=== PATIENT | female | born 1965 | race Caucasian/White ===

== ENCOUNTER → 2024-10-26 | Outpatient (CLI) | payer MEDICAID, SELFPAY ==
[2024-10-26 12:37] LABS: Absolute Lymphocyte Count 2.46 X10^3/uL (0.83-4.51); Absolute Neutrophil Count 6.1 X10^3/uL (2.0-7.7); Basophil# 0.04 X10^3/uL; Basophil% 0.4 % (0-1); Eosinophil# 0.03 X10^3/uL; Eosinophils% 0.3 % (0-5); Hematocrit 45.4 % (37-47); Hemoglobin 15.2 g/dL (12.0-15.0); Lymphocyte # 2.46 X10^3/ul (0.83-4.51); Lymphocyte % 27.4 % (19-41); Mean Corp Hgb Conc 33.5 g/dL (32-36); Mean Corpuscular Hgb 31.6 pg (27.0-32.0); Mean Corpuscular Volume 94.4 fL (81-99); Mean Platelet Vol. 11.2 fl (6.2-12.0); Monocyte# 0.33 X10^3/uL; Monocyte% 3.7 % (0-10); NRBC Flagged by Analyzer 0 % (0-5); Neutrophil # 6.08 X10^3/uL (2.7-7.7); Neutrophil % 67.9 % (47-70); Platelet Count 258 K/mm3 (150-450); RBC Distribution Width CV 12.4 % (11.6-14.6); RBC Distribution Width SD 43.4 fl (35.1-43.9); Red Blood Count 4.81 M/mm3 (4.2-5.4)
[2024-10-26 14:27] LABS: ALB/GLOB Ratio 1.2 RATIO (0.9-2.4); AST(SGOT) 25 U/L (15-37); Alanine Aminotransfer ALT/SGPT 23 U/L (13-56); Albumin, Serum 4.6 g/dL (3.2-5.0); Alkaline Phosphatase 101 U/L (45-117); Anion Gap 9 (5-15); BUN 6 mg/dL (7-18); BUN/Creat Ratio 7.5 RATIO (10-20); Calcium,Total 10.1 mg/dL (8.5-10.1); Chloride 105 mmol/L (98-107); EST Glomerular Filtration Rate 77 mL/min (>60); Est Glom Filt Rate - Afr Amer 94 mL/min (>60); Globulin 3.9 g/dL (2.2-4.2); Glucose 83 mg/dL (74-106); Potassium 3.8 mmol/L (3.5-5.1); Protein, Total 8.5 g/dL (6.4-8.2); Sodium Level 136 mmol/L (136-145); T4 Free Direct 0.92 ng/dL (0.76-1.46)
[2024-11-01 09:22] LABS: ACCA 16 units (0-90); ALCA 2 units (0-60); AMCA 6 units (0-100); Anti-Centromere B Ab <0.2 AI (0.0-0.9); Anti-Chromatin <0.2 AI (0.0-0.9); Anti-Jo <0.2 AI (0.0-0.9); Anti-Scleroderma-70 AB <0.2 AI (0.0-0.9); Anti-dsDNA Ab <1 IU/mL (0-9); Beef <0.10 kU/L (Class 0); Chocolate <0.10 kU/L (Class 0); Codfish <0.10 kU/L (Class 0); Corn <0.10 kU/L (Class 0); Cytoplasmic Ab (C-ANCA) <1:20 titer (Neg:<1:20); Egg, Whole 0.31 kU/L (Class 0/I); Immunoglobulin A 146 mg/dL (87-352); Immunoglobulin E 33 IU/mL (6-495); Immunoglobulin G 929 mg/dL (586-1602); Immunoglobulin M 132 mg/dL (26-217); Milk (Cow) 0.58 kU/L (Class II); Mussels <0.10 kU/L (Class 0); Peanut <0.10 kU/L (Class 0); Perinuclear Ab (P-ANCA) <1:20 titer (Neg:<1:20); Pork <0.10 kU/L (Class 0); RNP Ab <0.2 AI (0.0-0.9); SJOGREN'S Anti-SS-A test < 0.2 AI (0.0-0.9); SJOGREN'S Anti-SS-B test < 0.2 AI (0.0-0.9); Salmon <0.10 kU/L (Class 0); Shrimp <0.10 kU/L (Class 0); Smith Ab <0.2 AI (0.0-0.9); Soybean <0.10 kU/L (Class 0); Tuna <0.10 kU/L (Class 0); Wheat <0.10 kU/L (Class 0); gASCA 17 units (0-50)
== END | disposition home or self-care (01) ==
LOC: LAB 11:30
PROVIDERS: Referring Provider Student in an Organized Health Care Education/Training Program; Visit Provider Student in an Organized Health Care Education/Training Program
DX: R10.9 Unspecified abdominal pain (principal); K58.9 Irritable bowel syndrome, unspecified
CPT/HCPCS: 36415; 80053; 82784; 82785; 83516; 84439; 84443; 85025; 86003; 86005; 86036; 86037; 86225; 86235; 86671

== ENCOUNTER 2024-11-12 05:28 | Day surgery (SDC) | payer MEDICAID, SELFPAY ==
[2024-11-12] VITALS (9 sets, daily range): BP systolic 98–145; BP diastolic 68–103; PULSE 72–115; RESP 16–17; TEMP 36.2–37.4; O2SAT 94–99; BMI 15.9
--- NOTE | 2024-11-12 | GASB_PTH ---
PATIENT: GONSALO TRAN LOC: EN U#:[id number] AGE/SX: 59/F ROOM: RE11/12/[address]: Dr. Homero Caba DO : 1965 BED: DIS: 11/12/2024 SPEC #: [id number] RECD: 11/12/24 12:32 STATUS: JUAN SWIFT #: [id number] BRENNEN: 11/12/24 00:[address]: Hmoero Caba DEPT: SURGICAL PATHOLOGY RECD BY: Nnamdi Meza Tissues: A - Duodenum, NOS B - Gastric mucous membrane C - Esophageal mucous membrane D - Ileum, NOS E - COLON BIOPSY F - Rectum, NOS Procedures: Special Stain Group I Surgery Specimen Level IV Alcian Blue/PAS (control) HEADER OPERATION: Colonoscopy with biopsies, EGD with biopsies PRE-OP DIAGNOSIS: Abdominal pain TISSUE SUBMITTED: A. Duodenum, B. Gastric body, C. Distal esophagus, D. Terminal ileum, E. Random colon, F. Rectal polyp MICROSCOPIC DIAGNOSIS A. Duodenum, biopsy: Fragments of duodenal mucosa mild nonspecific chronic inflammation and reactive changes. B. Gastric body, biopsy: Mild gastritis. See microscopic description and comment. C. Distal esophagus, biopsy: Fragments of gastroesophageal mucosa with chronic inflammation. Rare cells with intestinal metaplasia (goblet cell metaplasia) are noted. See comment. D. Terminal ileum, biopsy: Fragments of small intestinal mucosa, no pathologic diagnosis. E. Colon, random biopsy: Fragments of colonic mucosa, no pathologic diagnosis. F. Rectal polyp, biopsy: Fragments of colonic mucosa, no pathologic diagnosis. FAVIAN. 11/15/2024 COMMENT B. The results of immunohistochemistry for Helicobacter pylori will be reported separately ([id number]). C. Alcian blue/PAS stain with matched control is used in the evaluation of the specimen. MICROSCOPIC DESCRIPTION Slides are reviewed. B. The specimen shows fragments of gastric mucosa with chronic inflammatory cell infiltrates in the lamina propria consisting of lymphocytes and plasma cells, consistent with mild chronic gastritis. GROSS DESCRIPTION A. Received in fixative is one container labeled with the patient's name and designated Duodenum biopsy x2. The specimen consists of two irregular fragments of light bueno soft tissue that in aggregate measure 0.5 x 0.2 x 0.2 cm and 0.4 x 0.4 x 0.2cm. The specimen is totally submitted in one cassette. B. Received in fixative is one container labeled with the patient's name and designated Gastric body biopsy. The specimen consists of three irregular fragments of light bueno soft tissue that in aggregate measure 0.8 x 0.4 x 0.1 cm. The specimen is totally submitted in one cassette. C. Received in fixative is one container labeled with the patient's name and designated Distal esophagus biopsy. The specimen consists of multiple irregular fragments of light bueno soft tissue that in aggregate measure 0.9 x 0.4 x 0.1 cm. The specimen is totally submitted in one cassette. D. Received in fixative is one container labeled with the patient's name and designated Terminal ileum biopsy. The specimen consists of two irregular fragments of light bueno soft tissue that in aggregate measure 0.6 x 0.2 x 0.1 cm. The specimen is totally submitted in one cassette. E. Received in fixative is one container labeled with the patient's name and designated Random colon biopsy. The specimen consists of multiple irregular fragments of light bueno soft tissue that in aggregate measure 1.0 x 0.6 x 0.1 cm. The specimen is totally submitted in one cassette. F. Received in fixative is one container labeled with the patient's name and designated Rectal polyp biopsy. The specimen consists of one irregular fragment of light bueno soft tissue that measures 0.5 x 0.3 x 0.1 cm. The specimen is totally submitted in one cassette. 11/15/2024 TC:3 CPT:92225m7,38271
--- NOTE | 2024-11-12 | IMM_PTH ---
PATIENT: GONSALO TRAN LOC: EN U#:[id number] AGE/SX: 59/F ROOM: RE11/12/[address]: Dr. Homero Caba DO : 1965 BED: DIS: 11/12/2024 SPEC #: [id number] RECD: 11/12/24 12:16 STATUS: JUAN JENIFFER #: [id number] BRENNEN: 11/12/24 00:[address]: Homero Caba DEPT: IMMUNOHISTOCHEMISTRY RECD BY: Elaina Cornelius Tissues: Gastric mucous membrane Procedures: H Pylori (initial) PHYSICIAN & [place] [address] SPECIMEN INFORMATION: Tissue Source: B. Gastric body Clinical Info: Abdominal pain Specimen Number: [id number] CPT code: 56377 METHODOLOGY: Deparaffinized sections of prefer/formalin-fixed tissue or PAP/DQ stained slides are incubated with monoclonal/polyclonal antibodies/oligonucleotide probes. Localization is made via biotin free immunoperoxidase method. Appropriate controls are performed and reacted as expected. Results on target cell population are indicated in the following table: RESULTS: ANTIBODY / CLONE RESULT H Pylori (polyclonal) negative These tests were developed and their performance characteristics determined by [facility]. They may not have been cleared or approved by the U.S. Food and Drug Administration. The FDA has determined that such clearance or approval is not necessary. The above immunohistochemical/dualISH markers are ordered and reviewed by the Pathologist. INTERPRETATION: B. Gastric body, biopsy: Negative for Helicobacter pylori organisms. 11/15/2024
--- NOTE | 2024-11-12 06:36 | PCM.PRE.AN2 ---
ASA Classification* ASA Classification ASA Classification: 3 Assessment & Plan Anesthesia* Anesthesia Assessment Anesthesia Assessment: Discussed sedation and/or anesthesia options, risks, benefits, and alternatives with patient/parents/legal guardian/POA. Questions invited. The patient/parents/legal guardian/POA seems to understand and agrees to proceed with anesthesia plan. Reviewed the physical assessment, medical history, allergy history and patient home medications list prior to surgery/procedure/anesthetic and documented any changes. Performed airway and anesthesia risk assessments. Anesthesia Type Anesthesia Type: MAC History Source History Obtained from:: Patient and Chart Anesthesia Focused Assessment* Temperature: 99.4 F Pulse Rate: 99 Blood Pressure: 123/90 Respiratory Rate: 17 Pulse Ox: 99 Oxygen Delivery Method: Room Air Airway Assessment Mouth opens: >3 cm Mallampati Score: IV Teeth Condition: Caps/Crowns (The Lower Front Incisors They Are All Tight.) Neck Range of motion (ROM): Limited ROM (Slight decrease extension) Focused Labs Anesthesia Preop lab: CBC WBC 9.0 K/mm3 (4.4-11.0) 10/26/24 11:39 RBC 4.81 M/mm3 (4.2-5.4) 10/26/24 11:39 Hgb 15.2 g/dL (12.0-15.0) H 10/26/24 11:39 Hct 45.4 % (37-47) 10/26/24 11:39 Plt Count 258 K/mm3 (150-450) 10/26/24 11:39 CHEMISTRY Potassium 3.8 mmol/L (3.5-5.1) 10/26/24 11:39 Sodium 136 mmol/L (136-145) 10/26/24 11:39 BUN 6 mg/dL (7-18) L 10/26/24 11:39 Creatinine 0.80 mg/dL (0.55-1.02) 10/26/24 11:39 Glucose 83 mg/dL (74-106) 10/26/24 11:39 TSH 1.080 uIU/mL (0.358-3.740) 10/26/24 11:39 COAG Pre-Assessment Diagnosis/Proposed Procedure Planned Operative Procedure(s): EGD, COLONOSCOPY Anesthesia History 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 When Was Last Pacemaker Check QUESTION #4 FULL TEXT: You/Your Family Experience fever (hyperthermia) with Anesthesia Last Oral Intake Last Oral intake: Last Oral Intake NPO since 06:30 11/12/24 06:04 Meds taken in AM with sips of No 11/12/24 06:04 water? Meds patient instructed to take am of surgery Any additional information?: Yes NPO since: 02:30 (Patient finished prep at 2:30 AM.) Meds taken in AM with sips of water?: Yes PONV PONV - crushing machine operator: PONV - crushing machine operator Female Yes 11/08/24 08:24 HX of Motion Sickness No 11/08/24 08:24 HX of N/V After Surgery No 11/08/24 08:24 Non-Smoker No 11/08/24 08:24 Duration of Surgery greater No 11/08/24 08:24 than 60 minutes Number of Risk Factors 1 11/08/24 08:24 PONV Score Low Risk 11/08/24 08:24 Height & Weight Height & Weight: Anesthesia: Height & Weight Height 5 ft 4 in 11/12/24 06:04 Weight: 42 kg 11/12/24 06:04 Body Mass Index (BMI) 15.9 11/12/24 06:04 Respiratory Assessment Respiratory Assessment - crushing machine operator: Respiratory Tract Infection Hx - crushing machine operator Hx Respiratory Tract Infection No 11/08/24 08:24 STOP Sleep Apnea STOP Sleep Apnea - crushing machine operator: STOP Sleep Apnea - crushing machine operator Hx Hypertension Yes 11/08/24 08:24 Hx Sleep Apnea No 11/08/24 08:24 CPAP BIPAP Do you snore loudly (louder No 11/08/24 08:24 than talking or can be heard Do you often feel tired/ No 11/08/24 08:24 fatigued/ sleepy during daytime? Has anyone observed you stop No 11/08/24 08:24 breathing during sleep? STOP Results Negative 11/08/24 08:24 QUESTION #5 FULL TEXT : Do you snore loudly (louder than talking or can be heard through closed doors)? 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 Specify any problems Hx of Preganancy in last 3 No 11/08/24 08:24 Months Nurse Filling Out Transfusion VLEHMAN 11/08/24 08:24 & Questions: Date: 11/08/24 11/08/24 08:24 Time: 08:32 11/08/24 08:24 Patient unable to answer at this time (ie. 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: /Reproductive Hx- crushing machine operator Hx Now Gestational Age (in weeks): EDC: Hx Hx Para Hx Section [facility] Medical History History of Clostridium difficile infection Depression Bipolar disorder Marijuana use History of ulceration History of IBS History of diverticulitis Gastric reflux Smoker History of stress test History of echocardiogram Hypertension Malnutrition Ileus Intestinal adhesions [bands], with partial obstruction Irritable bowel syndrome with constipation and diarrhea Ectopic Vertigo TMJ disease Small bowel obstruction IBS (irritable bowel syndrome) Heart disease Drug abuse Diarrhea Home Medications ?Medication ?Instructions ?Recorded ?Last Taken ?Type aspirin 81 mg tablet,delayed 81 mg PO DAILY 07/07/24 11/11/24 History release dicyclomine 20 mg tablet 20 mg PO TID 07/07/24 11/11/24 History diphenoxylate-atropine 2.5 1 tab PO DAILY 07/07/24 11/11/24 History mg-0.025 mg tablet (Lomotil) melatonin 10 mg capsule 10 mg PO HS PRN sleep 07/07/24 Unknown History metoprolol succinate 50 mg 50 mg PO DAILY 07/07/24 11/12/24 History tablet,extended release 24 hr mirtazapine 30 mg tablet (Remeron) 30 mg PO QHS 07/07/24 11/11/24 History nitroglycerin 0.4 mg sublingual 0.4 mg sublingual Q5M PRN chest 07/07/24 Unknown History tablet pain ondansetron HCl 4 mg tablet 4 mg PO Q8H 07/07/24 11/11/24 History trazodone 50 mg tablet 50 mg PO DAILY 07/07/24 11/11/24 History colestipol 1 gram tablet 1 g PO QDAY #60 tabs 07/30/24 Unknown Rx omeprazole 20 mg capsule,delayed 20 mg PO BID #60 caps 10/26/24 11/11/24 Rx release promethazine 12.5 mg tablet 12.5 mg PO TID #20 tabs 10/26/24 11/11/24 Rx Allergy/AdvReac Type Severity Reaction Status Date / Time ibuprofen AdvReac Mild Other Verified 11/12/24 06:02 morphine AdvReac Mild Itching Verified 11/12/24 06:02 Family History Mother Skin cancer Alzheimer disease Sister CVA (cerebral vascular accident) Thyroid disorder Surgical History History of cardiac catheterization History of total abdominal hysterectomy H/O pelvic surgery H/O exploratory laparotomy H/O hernia repair History of intestinal surgery Social History Smoking Status: Light Smoker (<10/day) Electronic Cigarette Use: with nicotine alcohol intake: former substance use type: marijuana Review of Systems (Anesthesia) ROS Narrative System reviewed and no additional complaints, except as documented.
--- NOTE | 2024-11-12 06:45 | PCM.HP.STD ---
HPI - General General Date of Admission: 11/12/24 Date of Service: 11/12/24 Chief Complaint: abdominal pain and diarrhea HPI Narrative GONSALO TRAN, is a 59 F who presentsGONSALO TRAN, is a 59 F who presents to the office today for f/u. [facility] established 07.27.24 w/ hx of numerous small bowel obstruction requiring bowel resection about 2 years ago. She has chronic diarrhea from this and struggles with accidents. She also has RUQ pain and takes dicyclomine as needed. *IBD sgi, autoimmune testing, stool tests and gallbladder US ordered. *Colestipol started Biochemical work up; IBD sgi wnl OV 10.26.24 Pt recently had a bad flare in her symptoms with nausea, inability to keep any food down and worse diarrhea. She presented to the ED in [place] and was repleted with IV fluids. CT abdomen also done and she tells me this was normal. Since then she has been week and unable to eat a regular diet. She is eating mostly bone broth and small portions. Colestipol was helpful up until the most recent flare. She is not on PPI. She has not had upper or lower scopes since her bowel resection two years ago. [facility] Medical History History of Clostridium difficile infection Depression Bipolar disorder Marijuana use History of ulceration History of IBS History of diverticulitis Gastric reflux Smoker History of stress test History of echocardiogram Hypertension Malnutrition Ileus Intestinal adhesions [bands], with partial obstruction Irritable bowel syndrome with constipation and diarrhea Ectopic Vertigo TMJ disease Small bowel obstruction IBS (irritable bowel syndrome) Heart disease Drug abuse Diarrhea Home Medications ?Medication ?Instructions ?Recorded ?Last Taken ?Type aspirin 81 mg tablet,delayed 81 mg PO DAILY 07/07/24 11/11/24 History release dicyclomine 20 mg tablet 20 mg PO TID 07/07/24 11/11/24 History diphenoxylate-atropine 2.5 1 tab PO DAILY 07/07/24 11/11/24 History mg-0.025 mg tablet (Lomotil) melatonin 10 mg capsule 10 mg PO HS PRN sleep 07/07/24 Unknown History metoprolol succinate 50 mg 50 mg PO DAILY 07/07/24 11/12/24 History tablet,extended release 24 hr mirtazapine 30 mg tablet (Remeron) 30 mg PO QHS 07/07/24 11/11/24 History nitroglycerin 0.4 mg sublingual 0.4 mg sublingual Q5M PRN chest 07/07/24 Unknown History tablet pain ondansetron HCl 4 mg tablet 4 mg PO Q8H 07/07/24 11/11/24 History trazodone 50 mg tablet 50 mg PO DAILY 07/07/24 11/11/24 History colestipol 1 gram tablet 1 g PO QDAY #60 tabs 07/30/24 Unknown Rx omeprazole 20 mg capsule,delayed 20 mg PO BID #60 caps 10/26/24 11/11/24 Rx release promethazine 12.5 mg tablet 12.5 mg PO TID #20 tabs 10/26/24 11/11/24 Rx Allergy/AdvReac Type Severity Reaction Status Date / Time ibuprofen AdvReac Mild Other Verified 11/12/24 06:02 morphine AdvReac Mild Itching Verified 11/12/24 06:02 Family History Mother Skin cancer Alzheimer disease Sister CVA (cerebral vascular accident) Thyroid disorder Surgical History History of cardiac catheterization History of total abdominal hysterectomy H/O pelvic surgery H/O exploratory laparotomy H/O hernia repair History of intestinal surgery Social History Smoking Status: Current every day smoker (Patient smoked today.) tobacco type: cigarettes Electronic Cigarette Use: with nicotine alcohol intake: former substance use type: marijuana ROS Constitutional Constitutional: Denies fatigue, fever(s), poor appetite, weight gain or weight loss Gastrointestinal Gastrointestinal: Denies belching, bloating, change in bowel habits, change in stool character, chewing difficulty, coffee ground emesis, constipation, cramping, diarrhea, dyspepsia, dysphagia, early satiety, excessive flatus, fecal incontinence, heartburn, hematemesis, hematochezia, hemorrhoids, loose stools, melena, nausea, odynophagia, rectal bleeding, tenesmus, vomiting or weight changes Vital Signs Vital Signs Vital Signs: 11/12/24 06:04 11/12/24 06:04 11/12/24 06:30 Temperature 99.4 F H Temperature Source Temporal Pulse Rate 115 H 99 Respiratory Rate 17 Respiratory Pattern Normal Blood Pressure 145/103 H 123/90 H Blood Pressure Mean 117 Blood Pressure Source Monitor Blood Pressure Position Semi-Fowlers Blood Pressure Location Left Arm Pulse Ox 99 Oxygen Delivery Method Room Air 11/12/24 06:43 Temperature 99.4 F H Temperature Source Pulse Rate 99 Respiratory Rate 17 Respiratory Pattern Blood Pressure 123/90 H Blood Pressure Mean Blood Pressure Source Blood Pressure Position Blood Pressure Location Pulse Ox 99 Oxygen Delivery Method Room Air Weight Weight: 92 lb 9.506 oz Body Mass Index (BMI) 15.9 Physical Exam Const alert, oriented x3, no apparent distress and healthy appearing General Appearance: cooperative GI normal to inspection, nondistended, normoactive bowel sounds, soft to palpation, non-tender and non-distended Percussion: normal to percussion Rectal Exam: deferred Assessment & Plan Assessment/Plan (1) Abdominal pain: (2) IBS (irritable bowel syndrome): PLAN: Plan Affect: normal affect Assessment and Plan Assessment and Plan (1) Abdominal pain: Status: Acute Plan: This is a 59 yo female pt who is s/p bowel resection after small bowel obstruction 2 years ago with continued issues with abdominal pain, diarrhea, v/v. Blood work for IBD was ordered and was wnl. Still waiting on stool testing and gallbladder US to be sent from [facility]. She had recent flare in her symptoms with worse n/v and diarrhea. She will start PPI therapy with omeprazole to reduce acid in her GI tract. I will prescribe promethazine as this is the only nausea medication that has helped her in the past. Advised she discontinue use of zofran while taking the promethazine. She is understanding. She has not had EGD or colonoscopy since her bowel resection two years ago. She will be scheduled for this to assess her GI tract. SHe continues to lose weight and is not eating much. I encouraged she start drinking ensure. -Colonoscopy and EGD -Start PPI -promethazine as needed -Ensure nutrition drinks -f/u after procedure Orders: Orders Comprehensive Metabolic Profil Today R10.9 - Unspecified abdominal pain Medications: New omeprazole 20 mg PO BID 60 caps 2RF promethazine 12.5 mg PO TID 20 tabs 2RF
--- NOTE | 2024-11-12 07:38 | OP.CCLET_ITS ---
11/12/2024 Lady El Re : Upper GI endoscopy procedure for Jessika Grider Dear S[place] This procedure was performed on Tuesday, November 12, 2024. My impressions and recommendations are as follows: Impressions : - LA Grade B erosive esophagitis with no bleeding. Biopsied. - Chronic gastritis with hemorrhage. Biopsied. - Acquired duodenal stenosis. Biopsied. Recommendations : - Discharge patient to home. - Resume previous diet. - Continue present medications. - Await pathology results. My findings are described in the full procedure note, which is enclosed. If I can be of further assistance, please feel free to contact me at . Sincerely, Homero Caba, 11/12/2024 7:37:31 AM This report has been signed electronically.
--- NOTE | 2024-11-12 07:38 | OP.EGD_ITS ---
Patient Name: Jessika Grider Procedure Date: 11/12/2024 6:19 AM Date of : 1965 Age: 59 Procedure: Upper GI endoscopy Indications: Epigastric abdominal pain, Failure to respond to medical treatment Providers: Homero Caba DO Referring MD: Lady El Medicines: Monitored Anesthesia Care Patient Profile: This is a 59 year old female. Refer to note in patient chart for documentation of history and physical. Patient has symptoms of acute abdominal cramping, chronic global abdominal pain, chronic dyspepsia, acute throat burning and acute vomiting. Complications: No immediate complications. Procedure: Pre-Anesthesia Assessment: - Prior to the procedure, a History and Physical was performed, and patient medications and allergies were reviewed. The patient is competent. The risks and benefits of the procedure and the sedation options and risks were discussed with the patient. All questions were answered and informed consent was obtained. Patient identification and proposed procedure were verified by the physician in the pre-procedure area. Mental Status Examination: alert and oriented. Airway Examination: normal oropharyngeal airway and neck mobility. Respiratory Examination: clear to auscultation. CV Examination: normal. Prophylactic Antibiotics: The patient does not require prophylactic antibiotics. Prior Anticoagulants: The patient has taken no anticoagulant or antiplatelet agents except for NSAID medication. ASA Grade Assessment: II - A patient with mild systemic disease. After reviewing the risks and benefits, the patient was deemed in satisfactory condition to undergo the procedure. The anesthesia plan was to use monitored anesthesia care (MAC). Immediately prior to administration of medications, the patient was re-assessed for adequacy to receive sedatives. The heart rate, respiratory rate, oxygen saturations, blood pressure, adequacy of pulmonary ventilation, and response to care were monitored throughout the procedure. The physical status of the patient was re-assessed after the procedure. After obtaining informed consent, the endoscope was passed under direct vision. Throughout the procedure, the patient's blood pressure, pulse, and oxygen saturations were monitored continuously. The colonoscope was introduced through the mouth, and advanced to the second part of duodenum. The upper GI endoscopy was accomplished without difficulty. The patient tolerated the procedure well. Scope In: 6:56:39 AM Scope Out: 7:06:45 AM Total Procedure Duration Time 0 hours 10 minutes 6 seconds Findings: LA Grade B (one or more mucosal breaks greater than 5 mm, not extending between the tops of two mucosal folds) esophagitis with no bleeding was found 37 to 40 cm from the incisors. Biopsies were taken with a cold forceps for histology. Verification of patient identification for the specimen was done. Estimated blood loss was minimal. Diffuse moderate inflammation with hemorrhage characterized by adherent blood, erosions and erythema was found in the gastric body. Biopsies were taken with a cold forceps for histology. Verification of patient identification for the specimen was done. Estimated blood loss was minimal. An acquired benign-appearing, intrinsic moderate stenosis was found in the first portion of the duodenum and was traversed. Biopsies were taken with a cold forceps for histology. Verification of patient identification for the specimen was done. Estimated blood loss was minimal. Impression: - LA Grade B erosive esophagitis with no bleeding. Biopsied. - Chronic gastritis with hemorrhage. Biopsied. - Acquired duodenal stenosis. Biopsied. Recommendation: - Discharge patient to home. - Resume previous diet. - Continue present medications. - Await pathology results. Procedure Code(s): --- Professional --- 82861, Esophagogastroduodenoscopy, flexible, transoral; with biopsy, single or multiple CPT copyright 2021 [employer]. All rights reserved. The codes documented in this report are preliminary and upon shift supervisor melting review may be revised to meet current compliance requirements. Homero Caba DO 11/12/2024 7:37:31 AM This report has been signed electronically. Number of Addenda: 0 Note Initiated On: 11/12/2024 6:19 AM
--- NOTE | 2024-11-12 07:42 | PCM.POST.ANE ---
Anesthesia: Postop Eval I Current Vital Signs Temperature: 97.1 F Pulse Rate: 74 Blood Pressure: 98/68 Respiratory Rate: 16 Pulse Ox: 95 Oxygen Delivery Method: Room Air Assessment Airway patent: Yes Spontaneous unlabored respirations: Yes Mental status: Asleep nausea: No Vomiting: No Anesthesia Complication: No Fluid Hydration Crystalloid volume administer (ml): 70 Total IV fluid infused: 70 Progress Note Anesthesia document: Postop Eval 1 completed: Yes
--- NOTE | 2024-11-12 07:47 | OP.CCLET_ITS ---
11/12/2024 [facility] : Colonoscopy procedure for Jessika Grider Dear Sienna This procedure was performed on Tuesday, November 12, 2024. My impressions and recommendations are as follows: Impressions : - Redundant colon. - Diverticulosis in the recto-sigmoid colon, in the sigmoid colon and at the hepatic flexure. - Congested mucosa at the anus, in the sigmoid colon, in the descending colon, at the splenic flexure, in the transverse colon, at the hepatic flexure and in the ascending colon. Biopsied. - One 3 mm polyp in the rectum, removed with a cold biopsy forceps. Resected and retrieved. - Patent end-to-end ileo-colonic anastomosis, characterized by healthy appearing mucosa. - Congested mucosa in the distal ileum. Biopsied. Recommendations : - Discharge patient to home. - Resume previous diet. - Continue present medications. - Await pathology results. - Repeat colonoscopy in 5 years for surveillance based on pathology results. My findings are described in the full procedure note, which is enclosed. If I can be of further assistance, please feel free to contact me at . Sincerely, Homero Caba DO 11/12/2024 7:46:50 AM This report has been signed electronically.
--- NOTE | 2024-11-12 07:47 | OP.COLON_ITS ---
Patient Name: Jessika Grider Procedure Date: 11/12/2024 7:06 AM Date of : 1965 Age: 59 Procedure: Colonoscopy Indications: Clinically significant diarrhea of unexplained origin Providers: Homero Caba DO Referring MD: Lady [facility] Medicines: Monitored Anesthesia Care Patient Profile: This is a 59 year old female. Refer to note in patient chart for documentation of history and physical. Patient has symptoms of acute abdominal cramping, chronic global abdominal pain, chronic dyspepsia, acute throat burning and acute vomiting. Last Colonoscopy: more than 3 years ago. Complications: No immediate complications. Procedure: Pre-Anesthesia Assessment: - Prior to the procedure, a History and Physical was performed, and patient medications and allergies were reviewed. The patient is competent. The risks and benefits of the procedure and the sedation options and risks were discussed with the patient. All questions were answered and informed consent was obtained. Patient identification and proposed procedure were verified by the physician in the pre-procedure area. Mental Status Examination: alert and oriented. Airway Examination: normal oropharyngeal airway and neck mobility. Respiratory Examination: clear to auscultation. CV Examination: normal. Prophylactic Antibiotics: The patient does not require prophylactic antibiotics. Prior Anticoagulants: The patient has taken no anticoagulant or antiplatelet agents except for NSAID medication. ASA Grade Assessment: II - A patient with mild systemic disease. After reviewing the risks and benefits, the patient was deemed in satisfactory condition to undergo the procedure. The anesthesia plan was to use monitored anesthesia care (MAC). Immediately prior to administration of medications, the patient was re-assessed for adequacy to receive sedatives. The heart rate, respiratory rate, oxygen saturations, blood pressure, adequacy of pulmonary ventilation, and response to care were monitored throughout the procedure. The physical status of the patient was re-assessed after the procedure. After I obtained informed consent, the scope was passed under direct vision. Throughout the procedure, the patient's blood pressure, pulse, and oxygen saturations were monitored continuously. The colonoscope was introduced through the anus and advanced to the terminal ileum. The colonoscopy was performed without difficulty. The patient tolerated the procedure well. The quality of the bowel preparation was adequate. The terminal ileum, ileocecal valve, appendiceal orifice, and rectum were photographed. Scope In: 7:08:11 AM Scope Withdrawal Time 0 hours 12 minutes 44 seconds Scope Out: 7:31:04 AM Total Procedure Duration Time 0 hours 22 minutes 53 seconds Findings: The perianal and digital rectal examinations were normal. The recto-sigmoid colon, sigmoid colon and hepatic flexure were moderately redundant. A few small-mouthed diverticula were found in the recto-sigmoid colon, sigmoid colon and hepatic flexure. An area of mildly congested mucosa was found at the anus, in the sigmoid colon, in the descending colon, at the splenic flexure, in the transverse colon, at the hepatic flexure and in the ascending colon. Biopsies were taken with a cold forceps for histology. Verification of patient identification for the specimen was done. Estimated blood loss was minimal. A 3 mm polyp was found in the rectum. The polyp was sessile. The polyp was removed with a cold biopsy forceps. Resection and retrieval were complete. Verification of patient identification for the specimen was done. Estimated blood loss was minimal. There was evidence of a prior end-to-end ileo-colonic anastomosis in the ascending colon. This was patent and was characterized by healthy appearing mucosa. The anastomosis was traversed. A patchy area of the distal ileum was congested. Biopsies were taken with a cold forceps for histology. Verification of patient identification for the specimen was done. Estimated blood loss was minimal. Impression: - Redundant colon. - Diverticulosis in the recto-sigmoid colon, in the sigmoid colon and at the hepatic flexure. - Congested mucosa at the anus, in the sigmoid colon, in the descending colon, at the splenic flexure, in the transverse colon, at the hepatic flexure and in the ascending colon. Biopsied. - One 3 mm polyp in the rectum, removed with a cold biopsy forceps. Resected and retrieved. - Patent end-to-end ileo-colonic anastomosis, characterized by healthy appearing mucosa. - Congested mucosa in the distal ileum. Biopsied. Recommendation: - Discharge patient to home. - Resume previous diet. - Continue present medications. - Await pathology results. - Repeat colonoscopy in 5 years for surveillance based on pathology results. Procedure Code(s): --- Professional --- 01752, Colonoscopy, flexible; with biopsy, single or multiple CPT copyright 2021 [employer]. All rights reserved. The codes documented in this report are preliminary and upon mgmt specialist review may be revised to meet current compliance requirements. Homero Caba DO 11/12/2024 7:46:50 AM This report has been signed electronically. Number of Addenda: 0 Note Initiated On: 11/12/2024 7:06 AM
--- NOTE | 2024-11-12 09:29 | PCM.POSTANE2 ---
Anesthesia Postop Eval I Sum Postop Eval Completion status Anesthesia document: Postop Eval 1 completed: Yes Anesthesia Postop Eval I Summary Anesthesia Postop Eval I Summary: Anesthesia Postop Eval I: Assessment Summary Airway patent Yes 11/12/24 07:43 [email or web address] Spontaneous unlabored Yes 11/12/24 07:43 [email or web address] respirations Mental status Asleep 11/12/24 07:43 [email or web address] nausea No 11/12/24 07:43 [email or web address] Vomiting No 11/12/24 07:43 [email or web address] Anesthesia Postop Eval I: Fluid Summary Crystalloid volume administer 70 11/12/24 07:43 [email or web address] (ml) Colloids volume administered ( ml) Blood Product volume administered (ml) Total IV fluid infused 70 11/12/24 07:43 [email or web address] Anesthesia Postop Eval I: Summary Notes Anesthesia Complication No 11/12/24 07:43 [email or web address] Anesthesia Complication Comment: Post-operative progress note Anesthesia: Postop Eval II Evaluation Mental status: Awake Pain Level: 0 nausea: No Vomiting: No
== END 2024-11-12 08:42 | disposition home or self-care (01) ==
LOC: EN 05:29 → AC 05:29
PROVIDERS: Visit Provider Internal Medicine Gastroenterology
PROC: 0DJD8ZZ Inspection of Lower Intestinal Tract, Via Natural or Artificial Opening Endoscopic (ICD-10-PCS; CPT 45378; principal; 2024-11-12 06:25)
DX: R10.11 Right upper quadrant pain (principal); K63.89 Other specified diseases of intestine; I10 Essential (primary) hypertension; K31.5 Obstruction of duodenum; Z79.82 Long term (current) use of aspirin; F17.210 Nicotine dependence, cigarettes, uncomplicated; K58.0 Irritable bowel syndrome with diarrhea; K62.1 Rectal polyp; Z79.899 Other long term (current) drug therapy; F32.A Depression, unspecified; Z90.710 Acquired absence of both cervix and uterus; K21.00 Gastro-esophageal reflux disease with esophagitis, without bleeding; K29.51 Unspecified chronic gastritis with bleeding; K57.30 Diverticulosis of large intestine without perforation or abscess without bleeding; K62.89 Other specified diseases of anus and rectum; K31.A0 Gastric intestinal metaplasia, unspecified
CPT/HCPCS: 43239; 45380; 88305; 88312; 88342; A4216; J2405

== ENCOUNTER → 2024-12-20 | Outpatient (CLI) | payer MEDICAID, SELFPAY ==
--- NOTE | 2024-12-20 11:58 | NM_ITS ---
PROCEDURE: GASTRIC EMPTYING STUDY REASON FOR EXAM: Bloating. Nausea. TECHNIQUE: Following the ingestion of the radiopharmaceutical, anterior and posterior gamma camera images were acquired at 62nd intervals for a total of 60 minutes. RADIOPHARMACEUTICAL: 1.1 mCi of technetium sulfur colloid in oatmeal. COMPARISON: No relevant prior. FINDINGS: Half-life: 49.64 min. Gastroesophageal reflux: None. NM/Gastric Emptying Study IMPRESSION: 1. Normal gastric emptying study. 2. No evidence of gastroesophageal reflux. Reading Location: [facility]
[2024-12-24 00:06] LABS: Pancreatic Elastase, Fecal 141 (>200)
[2024-12-24 08:09] LABS: Calprotectin, Stool <5 ug/g (0-120)
== END | disposition home or self-care (01) ==
PROVIDERS: PCP Family Medicine; Referring Provider Student in an Organized Health Care Education/Training Program; Visit Provider Student in an Organized Health Care Education/Training Program
DX: K58.9 Irritable bowel syndrome, unspecified (principal); R10.9 Unspecified abdominal pain
CPT/HCPCS: 87177; 87209; 87329; 78264; 82653; 83630; 83993; 87493; 87506; A9541

== ENCOUNTER → 2025-02-16 | Outpatient (CLI) | payer MEDICAID, SELFPAY ==
--- NOTE | 2025-02-16 14:00 | CT_ITS ---
PROCEDURE: ABDOMEN/PELVIS WITH CONTRAST 02/16/2025 REASON FOR EXAM: ACQUIRED DUODENAL STENOSIS History of prior bowel resection and diarrhea. TECHNIQUE: Abdomen and pelvis CT with intravenous contrast. Coronal and Sagittal reconstruction series were provided. PATIENT PREPARATION: Per protocol ORAL CONTRAST TYPE: Given. CONTRAST: Isovue 370 VOLUME: 100 mL mL One or more dose reduction techniques were used (e.g., Automated exposure control, adjustment of the mA and/or kV according to patient size, use of iterative reconstruction technique. RADIATION DOSE SUMMARY: CTDlvol: 10 mGy DLP: 306.38 mGycm COMPARISON: None FINDINGS: Lung bases: Unremarkable. Liver: Normal size. No mass. Gallbladder: Unremarkable Spleen: Normal size. Pancreas: Normal size without evidence of mass surrounding inflammation or ductal dilation. Adrenals: Unremarkable Kidneys: Unremarkable incidental note is made of a left retroaortic vein. Bladder: Reproductive Organs: Prior hysterectomy. Adnexal regions are unremarkable. Bowel: Findings suggestive of partial right hemicolectomy. Appendix: The appendix is not identified. There is no inflammatory process identified in the right lower quadrant to suggest appendicitis. Lymph nodes: No suspicious lymph node enlargement. Vasculature: Mild diffuse atherosclerotic calcifications are noted. Peritoneum / Retroperitoneum: Bones: Degenerative changes of the spine. Straightening of the normal lumbar lordosis. CT/Abdomen/Pelvis WITH Contrast IMPRESSION: NO ACUTE FINDINGS AT THE ABDOMEN OR PELVIS ON CONTRAST-ENHANCED CT. Reading Location: [place] [id number]
== END | disposition home or self-care (01) ==
LOC: CT 11:45
PROVIDERS: PCP Family Medicine; Referring Provider Student in an Organized Health Care Education/Training Program; Visit Provider Student in an Organized Health Care Education/Training Program
DX: K31.5 Obstruction of duodenum (principal)
CPT/HCPCS: 74177; Q9967

== ENCOUNTER → 2025-04-14 | Outpatient (CLI) | payer MEDICAID, SELFPAY ==
--- NOTE | 2025-04-14 15:50 | MRI_ITS ---
PROCEDURE: MRCP ABDOMEN WITHOUT CONTRAST, 04/14/2025 REASON FOR EXAM: DILATED CBD TECHNIQUE: Multiplanar multisequence MRI abdomen was performed without IV contrast. MRCP was performed including generation of MIP reconstructions and 3D reformats. IV CONTRAST: None. COMPARISON: 02/16/2025 FINDINGS: Variable overall mild motion limitation. Few sequences are mild/moderately motion degraded. Note that the exam was optimized for evaluation of the gallbladder and biliary tree rather than the remaining abdominal viscera. Note also that sensitivity is limited in the absence of IV contrast. Liver: Punctate 2 mm presumed cyst, incompletely characterized in the absence of IV contrast, visible only on coronal thin MRCP.. Gallbladder: Unremarkable. Biliary tree: Top-normal caliber of the CBD at 7 mm. No definite filling defect identified. Pancreatic ducts: Unremarkable. Other: Operative changes along the anterior lumbar midline abdominal wall. Hysterectomy. Lumbar spondylosis not well evaluated. MRI/MRCP Abdomen without Contrast IMPRESSION: 1. Slightly motion limited noncontrast exam. 2. Similar top-normal caliber of the CBD compared with 02/16/2025, without defini te obstructing process evident in the absence of IV contrast and routine MRI abdomen sequences. Correlate with serum bilirubin and the reported imaging demonstrating biliary dilatation. 3. Additional description as above. Reading Location: [id number]
== END | disposition home or self-care (01) ==
LOC: MRI 15:46
PROVIDERS: PCP Family Medicine; Referring Provider Student in an Organized Health Care Education/Training Program; Visit Provider Student in an Organized Health Care Education/Training Program
DX: K83.8 Other specified diseases of biliary tract (principal)
CPT/HCPCS: 74181